=== PATIENT | male | born 1975 | race American Indian/Alaskan Native ===

== ENCOUNTER 2020-02-09 10:27 | Emergency (ER) | payer OTHER ==
--- NOTE | 2020-02-09 13:49 | Event Note ---
ED Screening Note ED Screening Note: CP across the chest that began 3-4 days ago states it feels like a pressure states he also has abd pain and back pain +diarrhea couple days no n/v no fever no cough no blood in urine, no dysuria PMHx sciatica no allergies to meds This initial assessment/diagnostic orders/clinical plan/treatment(s) is/are subject to change based on patients health status, clinical progression and re- assessment by fellow clinical providers in the ED. Further treatment and workup at subsequent clinical providers discretion. Patient/guardian urged not to elope from the ED as their condition may be serious if not clinically assessed and managed. Initial orders include: CP protocol, UA
[2020-02-09 15:01] LABS: Bilirubin,Urine NEG (Negative); Blood,Urine NEG (Negative); Color,Urine Yellow (Yellow); Mucus,Urine FEW /HPF; Protein,Urine <15 mg/dL mg/dL (Negative); Urobilinogen,Urine < 2.0 mg/dL (<2.0)
[2020-02-09 15:04] LABS: Basophils # (Auto) 0.1 K/mm3 (0.0-0.1); Basophils % (Auto) 1.1 % (0.0-1.8); Eosinophils % (Auto) 0.7 % (0.0-4.3); Hemoglobin 18.2 gm/dl (11.8-15.2); Lymphocytes # (Auto) 2.9 K/mm3 (1.2-5.4); Lymphocytes % (Auto) 44.3 % (13.4-35.0); Mean Corpuscular HGB Conc 34 % (32-34); Mean Corpuscular Volume 85 fl (84-94); Monocytes # (Auto) 0.6 K/mm3 (0.0-0.8); Monocytes % (Auto) 9.9 % (0.0-7.3); Platelet Count 243 K/mm3 (140-440); Red Blood Count 6.36 M/mm3 (3.65-5.03); Red Cell Distribution Width 14.3 % (13.2-15.2)
--- NOTE | 2020-02-09 15:25 | XRay Report ---
CHEST 2 VIEWS INDICATION / CLINICAL INFORMATION: Chest Pain. COMPARISON: None available. FINDINGS: SUPPORT DEVICES: None. HEART / MEDIASTINUM: No significant abnormality. LUNGS / PLEURA: No significant pulmonary or pleural abnormality. No pneumothorax. ADDITIONAL FINDINGS: No significant additional findings. IMPRESSION: 1. No acute findings. Signer Name: Andrez Fajardo MD Signed: 02/09/2020 3:21 PM Workstation Name: [id number]
[2020-02-09 15:26] LABS: Alanine Aminotransferase 30 units/L (7-56); Albumin 4.7 g/dL (3.9-5); BUN/Creatinine Ratio 13; Blood Urea Nitrogen 10 mg/dL (9-20); Calcium 10.1 mg/dL (8.4-10.2); Hemolysis Index 16
[2020-02-09 18:03] VITALS: BP 126/69
--- NOTE | 2020-02-09 20:39 | Emergency Department Report ---
ED Chest Pain HPI - General Chief Complaint: Abdominal Pain Stated Complaint: CHEST PAIN/PAIN Time Seen by Provider: 02/09/20 13:48 Source: patient Mode of arrival: Ambulatory Limitations: No Limitations - History of Present Illness Initial Comments: 44-year-old -[place] male smoker presents emerged department complaining of a 2-day history of aches and pains across his chest associated with a sensation of trouble taking a deep breath and from time to time also a nonproductive cough. Ports no fever, chills, sweats no hemoptysis no hematemes is no hematochezia no orthopnea no lower extremity swelling. MD Complaint: chest pain -: Gradual, days(s) (2) Pain Location: substernal, left chest Severity: mild Quality: aching Consistency: constant Improves With: nothing Worsens With: nothing re: nausea, dyspnea Treatments Prior to Arrival: none - Related Data Previous Rx's Medication Instructions Recorded Last Taken Type Ibuprofen [Motrin 800 MG tab] 800 mg PO Q8HR PRN #30 tablet 10/16/14 Unknown Rx Cyclobenzaprine HCl [Flexeril 5 MG 5 mg PO TID #30 tab 10/17/14 Unknown Rx TAB] Ibuprofen [Motrin 800 MG tab] 800 mg PO Q8HR PRN #30 tablet 10/17/14 Unknown Rx Ketorolac [Toradol] 10 mg PO Q6H PRN #14 tablet 02/09/20 Unknown Rx Allergies Allergy/AdvReac Type Severity Reaction Status Date / Time No Known Allergies Allergy Unverified 10/17/14 17:25 Heart Score - HEART Score History: Slightly suspicious EKG: Normal Age: 45-65 Risk factors: 1-2 risk factors Troponin: < normal limit HEART Score: 2 ED Review of Systems ROS: Stated complaint: CHEST PAIN/PAIN Other details as noted in HPI Comment: All other systems reviewed and negative ED Past Medical Hx - Past Medical History Previous Medical History?: No - Surgical History Past Surgical History?: Yes Additional Surgical History: Left eye-corneal repair, umbilical hernia repair - Social History Smoking Status: Current Some Day Smoker Substance Use Type: Alcohol, Marijuana - Medications Home Medications: Home Medications Medication Instructions Recorded Confirmed Last Taken Type Ibuprofen [Motrin 800 MG tab] 800 mg PO Q8HR PRN #30 tablet 10/16/14 10/17/14 Unknown Rx Cyclobenzaprine HCl [Flexeril 5 MG 5 mg PO TID #30 tab 10/17/14 Unknown Rx TAB] Ibuprofen [Motrin 800 MG tab] 800 mg PO Q8HR PRN #30 tablet 10/17/14 Unknown Rx Ketorolac [Toradol] 10 mg PO Q6H PRN #14 tablet 02/09/20 Unknown Rx ED Physical Exam - General Limitations: No Limitations General appearance: alert, in no apparent distress - Head Head exam: Present: atraumatic, normocephalic - Eye Eye exam: Present: normal appearance, PERRL, EOMI Pupils: Present: normal accommodation - ENT ENT exam: Present: normal exam, normal orophraynx, mucous membranes moist - Neck Neck exam: Present: normal inspection - Respiratory Respiratory exam: Present: normal lung sounds bilaterally. Absent: respiratory distress, wheezes, rales, rhonchi, chest wall tenderness - Cardiovascular Cardiovascular Exam: Present: regular rate, normal rhythm. Absent: systolic murmur, diastolic murmur, rubs, gallop - GI/Abdominal GI/Abdominal exam: Present: soft, normal bowel sounds - Rectal Rectal exam: Present: deferred - Extremities Exam Extremities exam: Present: normal inspection - Back Exam Back exam: Present: normal inspection - Neurological Exam Neurological exam: Present: alert, oriented X3 - Psychiatric Psychiatric exam: Present: normal affect, normal mood - Skin Skin exam: Present: warm, dry, intact, normal color. Absent: rash ED Course Vital Signs 02/09/20 18:01 Temperature 98.0 F Pulse Rate 68 Respiratory 16 Rate Blood Pressure 126/69 [Right] O2 Sat by Pulse 98 Oximetry WASHINGTON score - Washington Score Age > 65: (0) No Aspirin use within the Past 7 Days: (0) No 3 or more CAD Risk Factors: (0) No 2 or more Angina events in past 24 hrs: (0) No Known CAD with more than 50% Stenosis: (0) No Elevated Cardiac Markers: (0) No ST Deviation Greater than 0.5mm: (0) No WASHINGTON Score: 0 ED Medical Decision Making - Lab Data Result diagrams: 02/09/20 14:49 02/09/20 14:49 - EKG Data EKG shows normal: sinus rhythm Rate: normal - EKG Data Interpretation: normal EKG 02/09/20 20:48 hr 75 nsr - Radiology Data Radiology results: report reviewed [facility] [address] [place] [address] XRay Report Signed Patient: VICENTE GRAY MR#: [id number] : 1975 Acct:[id number] Age/Sex: 44 / M ADM Date: 02/09/20 Loc: ED Attending Dr: Ordering Physician: ZACK ACEVEDO Date of Service: 02/09/20 Procedure(s): XR chest routine 2V Accession Number(s): [id number] cc: ZACK ACEVEDO Fluoro Time In Minutes: CHEST 2 VIEWS INDICATION / CLINICAL INFORMATION: Chest Pain. COMPARISON: None available. FINDINGS: SUPPORT DEVICES: None. HEART / MEDIASTINUM: No significant abnormality. LUNGS / PLEURA: No significant pulmonary or pleural abnormality. No pneumothorax. ADDITIONAL FINDINGS: No significant additional findings. IMPRESSION: 1. No acute findings. Signer Name: Andrez Fajardo MD Signed: 02/09/2020 3:21 PM Workstation Name: [id number] Transcribed By: SS Dictated By: Andrez Fajardo MD Electronically Authenticated By: Andrez Fajardo MD Signed Date/Time: 02/09/20 1521 DD/ 1520 TD/TT: - Medical Decision Making this patient presents with chest pain that is very unlikely angina or acute coronary syndrome. The emergency department evaluation has not identified any cause for suspicion that this chest pain has a cardiac etiology. Based on their history, EKG (which showed no evidence of ischemia or infarction) and imaging, in addition to the patient's physical exam, I see no evidence at this time for a malignant etiology for the patient's chest pain. There is no acute evidence for pulmonary embolus, acute myocardial infarction, pneumothorax, Boerhaeve syndrome, cardiac tamponade, thoracic artery dissection, or any other emergent cardiac, pulmonary or aortic pathology. Given the low pre-test probability for cardiac etiology of chest pain and the absence of any sign of ischemia or infarction, discharge for outpatient follow-up and further evaluation is reasonable. I have explained to the patient that even though a cardiac problem is very unlikely, follow-up and further testing is required to reduce further the already small uncertainty that exists. Other life-threatening diagnoses have been considered. The patient understands the need to return immediately if their symptoms worsen or they develop any new symptoms, and not to engage in any significant exertional activity until follow-up is obtained. Critical care attestation.: If time is entered above; I have spent that time in minutes in the direct care of this critically ill patient, excluding procedure time. ED Disposition Clinical Impression: Chest pain, Polycythemia Disposition: TO HOME OR SELFCARE Is pt being admited?: No Does the pt Need Aspirin: No Condition: Stable Instructions: Chest Pain (ED), Nonspecific Chest Pain, Adult, Erythropoietin Test Additional Instructions: take an asprin daily Prescriptions: Ketorolac [Toradol] 10 mg PO Q6H PRN #14 tablet PRN Reason: Pain Referrals: PRIMARY CAREMD [Primary Care Provider] - 3-5 Days IVORY ARRIAGA MD [Staff Physician] - 3-5 Days
== END 2020-02-09 20:55 | disposition home or self-care (01) ==
LOC: ED 10:27
DX: D75.1 Secondary polycythemia (principal); R07.89 Other chest pain; F17.200 Nicotine dependence, unspecified, uncomplicated; F12.10 Cannabis abuse, uncomplicated; Z79.1 Long term (current) use of non-steroidal anti-inflammatories (NSAID); Z79.899 Other long term (current) drug therapy
CPT/HCPCS: 36415; 71046; 80053; 81001; 83690; 84484; 85025; 93005

== ENCOUNTER 2021-03-09 07:47 | Emergency (ER) | payer OTHER ==
[2021-03-09 07:55] VITALS: BP 168/101
[2021-03-09] MEDS ORDERED: MORPHINE 4 MG/1 ML INJ IV ONE (10:22)
[2021-03-09] MEDS ORDERED: ONDANSETRON 4 MG/2 ML INJ IV ONE (10:22)
[2021-03-09] MEDS ORDERED: PANTOPRAZOLE 40 MG INJ IV ONE (10:22)
--- NOTE | 2021-03-09 10:26 | Emergency Department Report ---
ED General Adult HPI - General Chief complaint: GI Bleed Stated complaint: FEVER/CHILLS Time Seen by Provider: 03/09/21 10:19 Source: patient Mode of arrival: Ambulatory Limitations: No Limitations - History of Present Illness Initial comments: Patient is 46 years old male with no significant past medical history except for chronic back pain for 8 he is taking ibuprofen. Patient presented to the ER with multiple complaints. Stated that he has been having 2 bouts of bloody stool. He also stated that he has been nauseated but no vomiting. He also complaining of runny nose cough congestion and fever last night. Patient is not Covid 19 vaccinated. - Related Data Previous Rx's Medication Instructions Recorded Last Taken Type Ibuprofen [Motrin 800 MG tab] 800 mg PO Q8HR PRN #30 tablet 10/16/14 Unknown Rx Cyclobenzaprine HCl [Flexeril 5 MG 5 mg PO TID #30 tab 10/17/14 Unknown Rx TAB] Ibuprofen [Motrin 800 MG tab] 800 mg PO Q8HR PRN #30 tablet 10/17/14 Unknown Rx Ketorolac [Toradol] 10 mg PO Q6H PRN #14 tablet 02/09/20 Unknown Rx Allergies Allergy/AdvReac Type Severity Reaction Status Date / Time No Known Allergies Allergy Verified 03/09/21 07:55 ED Review of Systems ROS: Stated complaint: FEVER/CHILLS Other details as noted in HPI Comment: All other systems reviewed and negative Constitutional: chills, fever Respiratory: denies: cough, shortness of breath Cardiovascular: palpitations. denies: chest pain Gastrointestinal: abdominal pain, nausea, hematochezia Musculoskeletal: denies: back pain Neurological: denies: headache, weakness, numbness, paresthesias, confusion ED Past Medical Hx - Surgical History Additional Surgical History: Left eye-corneal repair, umbilical hernia repair - Social History Smoking Status: Current Some Day Smoker Substance Use Type: Alcohol, Marijuana - Medications Home Medications: Home Medications Medication Instructions Recorded Confirmed Last Taken Type Ibuprofen [Motrin 800 MG tab] 800 mg PO Q8HR PRN #30 tablet 10/16/14 10/17/14 Unknown Rx Cyclobenzaprine HCl [Flexeril 5 MG 5 mg PO TID #30 tab 10/17/14 Unknown Rx TAB] Ibuprofen [Motrin 800 MG tab] 800 mg PO Q8HR PRN #30 tablet 10/17/14 Unknown Rx Ketorolac [Toradol] 10 mg PO Q6H PRN #14 tablet 02/09/20 Unknown Rx ED Physical Exam - General Limitations: No Limitations General appearance: alert, in no apparent distress - Head Head exam: Present: atraumatic, normocephalic, normal inspection - Eye Eye exam: Present: normal appearance - ENT ENT exam: Present: normal exam, normal orophraynx, mucous membranes moist - Neck Neck exam: Present: normal inspection, full ROM. Absent: tenderness, meningismus - Respiratory Respiratory exam: Present: normal lung sounds bilaterally - Cardiovascular Cardiovascular Exam: Present: tachycardia, normal heart sounds - GI/Abdominal GI/Abdominal exam: Present: soft. Absent: distended, tenderness, guarding - Extremities Exam Extremities exam: Present: normal inspection, full ROM, normal capillary refill. Absent: tenderness - Back Exam Back exam: Present: normal inspection, full ROM. Absent: CVA tenderness (R), CVA tenderness (L) - Neurological Exam Neurological exam: Present: alert, oriented X3, CN II-XII intact, normal gait, reflexes normal - Psychiatric Psychiatric exam: Present: normal mood - Skin Skin exam: Present: warm, dry, intact, normal color ED Course Vital Signs 03/09/21 07:53 Temperature 99.8 F H Pulse Rate 121 H Respiratory 20 Rate Blood Pressure 168/101 [Left] O2 Sat by Pulse 100 Oximetry ED Medical Decision Making - Lab Data Result diagrams: 03/09/21 10:58 03/09/21 10:58 - Medical Decision Making Patient is 46 years old male with no significant past medical history except for chronic back pain for 8 he is taking ibuprofen. Patient presented to the ER with multiple complaints. Stated that he has been having 2 bouts of bloody stool. He also stated that he has been nauseated but no vomiting. He also complaining of runny nose cough congestion and fever last night. Patient is not Covid 19 vaccinated. Patient remained stable in the ER with stable vital sign. Labs reviewed and is unremarkable including hemoglobin of 14. Patient received normal saline, Zofran and Protonix. Patient stated that he is feeling much better. Patient advised to follow-up with gastroenterology and given [facility] to follow-up with. Patient also advised to return to the ER if he develop any new symptoms. Critical care attestation.: If time is entered above; I have spent that time in minutes in the direct care of this critically ill patient, excluding procedure time. ED Disposition Clinical Impression: GI bleed, Viral illness Disposition: HOME / SELF CARE / HOMELESS Is pt being admited?: No Condition: Stable Instructions: Gastrointestinal Bleeding, Viral Illness, Adult Referrals: PRIMARY CARE, [Primary Care Provider] - 3-5 Days [facility] [Provider Group] - 3-5 Days Forms: Accompanied Note
[2021-03-09 11:25] LABS: Hematocrit 45.1 % (35.5-45.6); Hemoglobin 14.7 gm/dl (11.8-15.2); Mean Corpuscular HGB Conc 33 % (32-34); Mean Corpuscular Volume 86 fl (84-94); Platelet Count 202 K/mm3 (140-440); Red Blood Count 5.25 M/mm3 (3.65-5.03); Red Cell Distribution Width 14.8 % (13.2-15.2)
[2021-03-09 11:41] LABS: Alanine Aminotransferase 17 units/L (7-56); Albumin 4.2 g/dL (3.9-5); BUN/Creatinine Ratio 9; Blood Urea Nitrogen 8 mg/dL (9-20); Calcium 9.3 mg/dL (8.4-10.2); Hemolysis Index 10
[2021-03-09 11:45] LABS: Bilirubin,Direct < 0.2 mg/dL (0-0.2)
[2021-03-09 12:01] LABS: INR 0.86 (0.87-1.13)
[2021-03-09 12:16] LABS: Total Cells Counted 100
[2021-03-09 12:17] LABS: Large Platelets Few; Platelet Estimate Consistent w Auto; Target Cells Few
== END 2021-03-09 13:19 | disposition home or self-care (01) ==
LOC: ED 07:47
DX: K92.2 Gastrointestinal hemorrhage, unspecified (principal); B34.9 Viral infection, unspecified; F17.200 Nicotine dependence, unspecified, uncomplicated; F10.20 Alcohol dependence, uncomplicated; F12.90 Cannabis use, unspecified, uncomplicated
CPT/HCPCS: 36415; 80048; 80076; 85007; 85025; 85610; 96374; 96375; 99283; C9113; J2270; J2405